=== PATIENT | male | born 2000 | race African-American/Black ===

== ENCOUNTER 2025-04-23 05:30 | Emergency (ER) | payer MEDICAID ==
[~2025-04-23] VITALS: Ht 180.3 cm; Wt 71.0 kg
[2025-04-23 05:37] VITALS: O2SAT 98
[2025-04-23] MEDS: OXYCODONE HCL/ACETAMINOPHEN 5/325MG TABLET PO ONE (06:23)
[2025-04-23] MEDS ORDERED: ACET-2708 MT (09:33)
[2025-04-23] MEDS ORDERED: NAPR220C61 MT (09:33)
[2025-04-23 09:53] VITALS: BP 113/63; PULSE 74; RESP 13; TEMP 36.7; O2SAT 99
== END 2025-04-23 09:57 | disposition home or self-care (01) ==
LOC: ER 05:30 → CANBEDREQ 09:34 → ER 09:57
DX: S02.831A Fracture of medial orbital wall, right side, initial encounter for closed fracture (principal); S02.2XXA Fracture of nasal bones, initial encounter for closed fracture; Y04.0XXA Assault by unarmed brawl or fight, initial encounter; Y93.89 Activity, other specified; Y92.89 Other specified places as the place of occurrence of the external cause; Y99.8 Other external cause status
CPT/HCPCS: 71045; 70450; 70486; 72125; 99284; Z7610 ×2